=== PATIENT | male | born 1945 | race Caucasian/White ===

== ENCOUNTER 2020-06-19 12:38 | Observation (INO) | payer MEDICARE, OTHER, SELFPAY ==
[2020-06-19] VITALS (8 sets, daily range): BP systolic 90–116; BP diastolic 61–70; PULSE 75–100; RESP 16–24; TEMP 36.5–37.4; O2SAT 95–100; BMI 33.8; BMI 33.7; BMI 27.1
--- NOTE | 2020-06-19 13:01 | XR_ITS ---
PROCEDURE: XR CHEST PORTABLE Referring Doctor: Fred Malik Patient Age:75Y CLINICAL HISTORY: POSITIVE COVID, SOB cough the COMPARISON: No exams were available for comparison FINDINGS: AP portable upright chest.-2 upright chest images are submitted. The 2nd repeat CXR with better inspiration and positioning No prior studies for comparison LEFT LUNG: Suggestion of fairly diffuse subtle hazy infiltrate along the periphery of the left lung, most evident at left mid lung towards left base and towards left lung base. Also likely minimal slightly streaky infiltrate at the left perihilar region and left midlung and will likely towards the left infrahilar area at LLL. RIGHT LUNG. The slightly hyperlucent appearance mid and upper lung may reflect underlying COPD. There is some subtle this just above the right hemidiaphragm slightly linear appearance and could reflect atelectasis of only question of very small subtle patchy infiltrate here. . Heart is normal in size. Meron and mediastinal structures satisfactory Round density at midline projecting to the left at the lower chest likely reflects a hiatal hernia, small to moderate sized. Suggestion of subtle a a air-fluid level here further supporting hiatal hernia.-Upper normal wall thickness here difficult to fuels engineer on plain film and may merely reflect lack of distension. No definitive pleural effusion only question some scant fluid along the lateral aspect of left CP angle on 1 of the 2 images IMPRESSION: 1...Subtle patchy and hazy pneumonic infiltrate most evident and convincing at left Chest: . Subtle diffuse hazy peripheral infiltrate along the lateral aspect of the left lung . Also suspect very subtle infiltrates left perihilar, left mid lung, and left infrahilar region 2.. Subtle minimal linear density right lung base. Suspect mainly atelectasis, although difficult to totally exclude subtle tiny patchy area early infiltrate here 3.. Small/moderate hiatal hernia noted Dictated by: Brant Belle MD 06/19/2020 13:59 Brant Belle MD in [place] 06/19/2020 13:59
--- NOTE | 2020-06-19 13:26 | HMH.EDUTC ---
[facility] Disposition Clinical Impression: Pneumonia due to COVID-19 virus, Acute kidney insufficiency Disposition: Still a Patient Condition on Discharge: Good Referrals: Trace Salazar [Primary Care Provider] - Time of Disposition: 14:46 Medical Decision Making - Nick Inquiry Pt receiving controlled substance: No Vital Signs: 06/19/20 12:55 Temperature 97.7 F Temperature Source Oral Pulse Rate [Left Brachial] 100 H Respiratory Rate 24 Blood Pressure [Left Arm] 90/62 L Blood Pressure Mean [Left Arm] 71 Blood Pressure Source [Left Arm] Automatic Cuff Blood Pressure Position [Left Arm] Sitting 02 Sat by Pulse Oximetry 96 Oxygen Delivery Method Room Air - Lab Data Lab Results 06/19/20 11:50: WBC 6.7, RBC 4.82, Hgb 15.9, Hct 47.4, MCV 98.2 H, MCH 33.0 H, MCHC 33.6, RDW 12.7, Plt Count 227, MPV 7.6, Neut % (Auto) 80.8 H, Lymph % (Auto) 11.4, [place] % (Auto) 7.0, Eos % (Auto) 0.1, Baso % (Auto) 0.6, Neut # (Auto) 5.4, Lymph # (Auto) 0.8, [place] # (Auto) 0.5, Eos # (Auto) 0.0, Baso # (Auto) 0.0 06/19/20 11:50: Sodium 133 L, Potassium 4.4, Chloride 101, Carbon Dioxide 22, Anion Gap 14.4, BUN 27 H, Creatinine 2.10 H, Estimated Creat Clear 35, Estimated GFR 31 L, Est GFR ( Amer) 38 L, Glucose 123 H, Calcium 8.9, Total Bilirubin 1.2, AST 43, ALT 38, Alkaline Phosphatase 90, Total Protein 7.3, Albumin 4.2, Globulin 3.1, Albumin/Globulin Ratio 1.4 06/19/20 11:50: Lactate 1.2 06/19/20 11:50: Total Creatine Kinase 43 L, CK-MB (CK-2) 0.3, CK-MB (CK-2) Rel Index 0.7, Troponin I < 0.01 Result diagrams: 06/19/20 11:50 06/19/20 11:50 Orders (Tests/Meds): ED MEDICATIONS Generic Name Dose Route Start Last Admin Trade Name Freq PRN Reason Stop Dose Admin Sodium Chloride 1,000 mls @ 150 mls/hr 06/19/20 13:30 06/19/20 13:40 Sod Chlor 0.9% 1000ml Bag IV 07/19/20 13:29 150 mls/hr .[id number] MURTAZA Administration - Radiology Data #1 Image(s): Chest Image Reviewed: Yes I reviewed the patient's radiology image, Yes I have reviewed radiologist's interpretation covid pneumonia - Physician Consults Physician Consulted: er esau Time: 14:43 Reason -: Other Comment/Response: discussed labs, pt condition, pneumonia and possiable admission [facility] HPI - General Chief complaint: Urgent [facility] Stated complaint: covid +, cough Time Seen by Provider: 06/19/20 13:32 Mode of Arrival: Ambulatory Source of Information: Patient Limitations: No Limitations Description of Symptoms (Recalled from Triage Doc. by RN): PATIENT IS COVID POSITIVE. C/O COUGH AND SOA HEENT Symptoms (Recalled from RN notes): No Resp Symptoms (Recalled from RN notes): Yes Skin Symptoms (Recalled from RN notes): No MS Symptoms (Recalled from RN notes): No Functional Status (Recalled from RN notes): WNL - History of Present Illness Provider Complaint: 75 yr old male presents for coughing up clear sputum, soa, not eating or drinking well and tiredness - Related Data Home Medications Medication Instructions Recorded Confirmed Losartan Potassium [Cozaar 100mg 100 mg PO DAILY 06/19/20 06/19/20 Tablets] Omeprazole [Omeprazole 20mg 20 mg PO DAILY 06/19/20 06/19/20 Capsule] Tamsulosin HCl [Flomax 0.4mg 0.4 mg PO HS 06/19/20 06/19/20 capsule] Allergies Allergy/AdvReac Type Severity Reaction Status Date / Time diphenhydramine Allergy Verified 06/19/20 13:12 [From Joseline] - Worker's Comp Is this a Worker's Comp case?: No [facility] History - Hepatitis A Screen Drug use history?: No High risk sexual behaviors?: No History of sexually transmitted infection?: No Currently employed?: No Childcare worker?: No Do you have indoor plumbing?: Yes Do you have electricity?: Yes Attestation statement:: This patient has been screened for Hepatitis A risk factors. I have reviewed the patient's past medical history: Yes - Social History Alcohol Intake: never Occupational Status: other ROS
[2020-06-19 14:16] LABS: Basophils % 0.6 % (0.1-2.0); Eosinophils % 0.1 % (0.1-12.0); Hematocrit 47.4 % (42.0-52.0); Hemoglobin 15.9 g/dL (14.1-18.0); Lymphocytes # 0.8 K/mm3 (0.7-4.5); Lymphocytes % 11.4 % (10-50); Mean Corpuscular HGB Conc 33.6 g/dL (31.8-35.4); Mean Corpuscular Volume 98.2 fl (80-94); Mean Platelet Volume 7.6 fl (7.4-10.4); Monocytes # 0.5 K/mm3 (0.1-1.0); Neutrophils # 5.4 K/mm3 (1.8-7.8); Neutrophils % 80.8 % (37.0-80.0); Platelet Count 227 K/mm3 (142-424); Red Blood Count 4.82 M/mm3 (4.60-6.20); Red Cell Distribution Width 12.7 % (11.5-17.5); White Blood Count 6.7 K/mm3 (4.8-10.8)
[2020-06-19 14:23] LABS: Alanine Aminotransferase 38 U/L (12-78); Albumin Level 4.2 g/dl (3.5-5.0); Albumin/Globulin Ratio 1.4 (1.1-1.8); Alkaline Phosphatase 90 U/L (38-126); Anion Gap 14.4 mEq/L (5-15); Aspartate Amino Transferase 43 U/L (17-59); Bilirubin,Total 1.2 mg/dl (0.2-1.3); Blood Urea Nitrogen 27 mg/dl (9-20); Calcium 8.9 mg/dl (8.4-10.2); Carbon Dioxide 22 mmol/L (22.0-30.0); Chloride 101 mmol/L (98-107); Creatine Kinase 43 U/L (55-170); Creatinine Clearance Estimated 35 mL/min (50-200); Estimated Glomerular Filt Rate 31 ml/min (>60); GFR (African American) 38 ML/MIN (>60); Globulin 3.1 g/dL (1.3-3.2); Glucose 123 mg/dl (74-100); Potassium 4.4 mmoL/L (3.5-5.1); Sodium 133 mmol/L (136-145); Total Protein,Serum 7.3 g/dl (6.3-8.2)
[2020-06-19 14:36] LABS: CKMB Relative Index 0.7 U/L (0-4.0); Creatine Kinase MB 0.3 ng/ml (0.0-2.03); Lactic Acid 1.2 mmol/L (0.7-2.1); Troponin I < 0.01 ng/ml (0.00-0.034)
--- NOTE | 2020-06-19 14:45 | PC.NURSE ---
PATIENT SENT TO ER PER DENA SOLIS APRN FOR ADMISSION. REPORT GIVEN TO Iliana MONTES DE OCA RN
--- NOTE | 2020-06-19 15:50 | HMH.EDGENADL ---
ED Disposition Clinical Impression: Pneumonia due to COVID-19 virus, Acute kidney insufficiency Disposition: Admitted As Inpatient Condition on Discharge: Good Referrals: Trace Salazar [Primary Care Provider] - - Critical Care Critical Care Time: No Attestation: On 06/19/20, the high probability of a clinically significant, sudden or life threatening deterioration of the following system(s) required my full and direct attention, intervention and personal management. The time I documented below is in addition to time spent performing reported procedures but includes the following listed in this critical care notation. Medical Decision Making - Medical Records Medical records reviewed: Yes: I reviewed the patient's medical records. - Nick Inquiry Pt receiving controlled substance: No Vital Signs: 06/19/20 12:55 06/19/20 14:45 06/19/20 15:10 Temperature 97.7 F 99.3 F Temperature Source Oral Oral Pulse Rate [Left Brachial] 100 H 92 H 82 Respiratory Rate 24 22 18 Blood Pressure [Left Arm] 90/62 L 92/61 L 108/63 L Blood Pressure Mean [Left Arm] 71 71 78 Blood Pressure Source [Left Arm] Automatic Cuff Automatic Cuff Automatic Cuff Blood Pressure Position [Left Arm] Sitting Sitting Sitting 02 Sat by Pulse Oximetry 96 100 96 Oxygen Delivery Method Room Air Room Air Room Air 06/19/20 16:07 06/19/20 16:30 Temperature Temperature Source Pulse Rate [Left Brachial] 79 82 Respiratory Rate Blood Pressure [Left Arm] 113/68 106/65 L Blood Pressure Mean [Left Arm] 83 78 Blood Pressure Source [Left Arm] Automatic Cuff Automatic Cuff Blood Pressure Position [Left Arm] Sitting Sitting 02 Sat by Pulse Oximetry 96 97 Oxygen Delivery Method Room Air Room Air - Lab Data Lab Results 06/19/20 11:50: WBC 6.7, RBC 4.82, Hgb 15.9, Hct 47.4, MCV 98.2 H, MCH 33.0 H, MCHC 33.6, RDW 12.7, Plt Count 227, MPV 7.6, Neut % (Auto) 80.8 H, Lymph % (Auto) 11.4, [place] % (Auto) 7.0, Eos % (Auto) 0.1, Baso % (Auto) 0.6, Neut # (Auto) 5.4, Lymph # (Auto) 0.8, [place] # (Auto) 0.5, Eos # (Auto) 0.0, Baso # (Auto) 0.0 06/19/20 11:50: Sodium 133 L, Potassium 4.4, Chloride 101, Carbon Dioxide 22, Anion Gap 14.4, BUN 27 H, Creatinine 2.10 H, Estimated Creat Clear 35, Estimated GFR 31 L, Est GFR ( Amer) 38 L, Glucose 123 H, Calcium 8.9, Total Bilirubin 1.2, AST 43, ALT 38, Alkaline Phosphatase 90, Total Protein 7.3, Albumin 4.2, Globulin 3.1, Albumin/Globulin Ratio 1.4 06/19/20 11:50: Lactate 1.2 06/19/20 11:50: Total Creatine Kinase 43 L, CK-MB (CK-2) 0.3, CK-MB (CK-2) Rel Index 0.7, Troponin I < 0.01 Result diagrams: 06/19/20 11:50 06/19/20 11:50 Orders (Tests/Meds): ED MEDICATIONS Generic Name Dose Route Start Last Admin Trade Name Freq PRN Reason Stop Dose Admin Sodium Chloride 1,000 mls @ 150 mls/hr 06/19/20 13:30 06/19/20 13:40 Sod Chlor 0.9% 1000ml Bag IV 07/19/20 13:29 150 mls/hr .[id number] MURTAZA Administration ORDERS Category Date Time Status Covid-19 Nasal PCR ([facility]) Routine Lab 06/19/20 15:10 Received Medical Decision Narrative: Patient 75-year-old male presenting with recent Covid infection presenting with decreased p.o. intake and generalized weakness. On initial work-up, patient with a creatinine of 2.1 and he had a blood pressure of 90/62 mmHg. He does have hypertension so this is abnormal for him. He was given a 1 L fluid bolus and his blood pressure now is 106/65 mmHg which is mildly improved but still on the low side of normal. X-ray does demonstrate what appears to be Covid pneumonia but patient has had no desaturations on room air or increased work of breathing. At this time, dexamethasone given and I did reach out to on-call hospitalist to discuss admission for this patient. After careful discussion patient will be admitted to Dr. Ray's service. I shared this plan with patient and in lobby and all parties are in agreement. Assessment: Covid infection Low blood pressure Ac
--- NOTE | 2020-06-19 16:29 | PC.NURSE ---
Dr Bartlett speaking to Dr Diaz.
--- NOTE | 2020-06-19 17:02 | PC.NURSE ---
Per radiologist recommendations, CTA is cancelled due to pt creatinine. MD aware.
--- NOTE | 2020-06-19 18:11 | PC.NURSE ---
notified ER of positive covid swab
--- NOTE | 2020-06-19 18:33 | PC.NURSE ---
tried to call report to second floor, staff didn't know who was the primary receiving nurse on pt, charge states she will call me back with assignment
--- NOTE | 2020-06-19 18:40 | PC.NURSE ---
spoke with jordan baron states she will be down to get report on pt.
--- NOTE | 2020-06-19 18:58 | PC.NURSE ---
report given to lorainern
--- NOTE | 2020-06-19 18:59 | PC.NURSE ---
asked ER MD if pt needs antibiotics r/t pt admitting diagnosis of covid pneumonia, ER MD states no antibiotics at this time r/t atypical viral pneumonia.
--- NOTE | 2020-06-19 19:30 | PC.NURSE ---
PT ARRIVED TO FLOOR VIA W/C FROM ED W/STAFF AT 1928
--- NOTE | 2020-06-19 20:38 | HMH.HP ---
*Admission Date: 06/19/20 *Chief complaint: soa *History of present illness: 75 yr old male presented to [facility] with c/o of soa, fatigue, decrease eating and drinking, coughing, and body aches for 4 days. Pt stats he was dx with covid and he continues to decline. Pt on arrival to [facility] had bp of 90/50 with hr 100. pt states his normal bp is 130/90. pt states he becomes very soa with walking. Pt was found to have cre 2.1 and pneumonia on xray. Then pt was sent to ed for evaluation. Pt admitted due to hypotension, and pneumonia. Pt wants to stay in hospital stats he is to ill to go home and wants to get better. [facility] History I have reviewed the patient's past medical history: Yes *Have you ever received a pneumonia vaccine?: No *Have you received a flu vaccine this season?: No - *Social History Alcohol Intake: never *Occupational Status:: other *Travel in the last 8 weeks: None Family Hx:: No significant family history Review of Systems - Review of Systems Review of systems:: pertinent systems reviewed and negative unless documented below - Constitutional Reports body ache(s), Reports fatigue, Reports fever(s), Reports malaise - Eyes Denies blurry vision - ENT Reports nasal congestion, Denies bleeding gums - *Cardiovascular Reports shortness of breath, Reports shortness of breath with activity, Denies chest pain with activity - *Respiratory Reports chest congestion, Reports cough, Reports shortness of breath, Reports shortness of breath with activity - *Gastrointestinal Reports nausea, Denies vomiting - *Genitourinary Denies urinary frequency - *Musculoskeletal Denies joint pain - Integumentary/Breasts Denies rash - *Neurologic Denies dizziness, Denies loss of vision - Psychiatric Denies anxiety - Endocrine Denies excessive sweating - Hematologic/Lymphatic Denies easy bruising - Allergic/Immunologic Denies itchy eyes Meds Home Medications Medication Instructions Recorded Confirmed Type Losartan Potassium [Cozaar 100mg 100 mg PO DAILY 06/19/20 06/19/20 History Tablets] Omeprazole [Omeprazole 20mg 20 mg PO DAILY 06/19/20 06/19/20 History Capsule] Tamsulosin HCl [Flomax 0.4mg 0.4 mg PO HS 06/19/20 06/19/20 History capsule] Allergies Allergy/AdvReac Type Severity Reaction Status Date / Time diphenhydramine Allergy Verified 06/19/20 13:12 [From Benadryl] Exam Vital signs and Labs for Last 24 Hours: Temp Pulse Resp BP Pulse Ox 97.9 F 75 16 116/66 95 06/19/20 20:00 06/19/20 20:00 06/19/20 20:00 06/19/20 20:00 06/19/20 20:00 Laboratory Results - last 24 hr 06/19/20 11:50: WBC 6.7, RBC 4.82, Hgb 15.9, Hct 47.4, MCV 98.2 H, MCH 33.0 H, MCHC 33.6, RDW 12.7, Plt Count 227, MPV 7.6, Neut % (Auto) 80.8 H, Lymph % (Auto) 11.4, [place] % (Auto) 7.0, Eos % (Auto) 0.1, Baso % (Auto) 0.6, Neut # (Auto) 5.4, Lymph # (Auto) 0.8, [place] # (Auto) 0.5, Eos # (Auto) 0.0, Baso # (Auto) 0.0 06/19/20 11:50: Sodium 133 L, Potassium 4.4, Chloride 101, Carbon Dioxide 22, Anion Gap 14.4, BUN 27 H, Creatinine 2.10 H, Estimated Creat Clear 35, Estimated GFR 31 L, Est GFR ( Amer) 38 L, Glucose 123 H, Calcium 8.9, Total Bilirubin 1.2, AST 43, ALT 38, Alkaline Phosphatase 90, Total Protein 7.3, Albumin 4.2, Globulin 3.1, Albumin/Globulin Ratio 1.4 06/19/20 11:50: Lactate 1.2 06/19/20 11:50: Total Creatine Kinase 43 L, CK-MB (CK-2) 0.3, CK-MB (CK-2) Rel Index 0.7, Troponin I < 0.01 I & O for Last 24 hours: Intake & Output 06/17/20 06/18/20 06/19/20 06/20/20 11:59 11:59 11:59 11:59 Weight 168 lb Microbiology Reports for the Last 24 Hours: Microbiology 06/19/20 15:10 Nasopharyngeal Coronavirus COVID-19 PCR - Final - Constitutional no acute distress - *Routine HEENT Exam Head: Present: normocephalic Eye: Present: PERRL ENT: Present: mucous membranes moist - *Routine Neck Exam Present: supple. Absent: lymphadenopathy - *Routine Respir
[2020-06-20] VITALS: BP 92/55; PULSE 77; RESP 16; TEMP 36.7; O2SAT 99
[2020-06-20 04:00] VITALS: BP 106/58; PULSE 66; RESP 16; TEMP 36.4; O2SAT 94
--- NOTE | 2020-06-20 05:10 | PC.NURSE ---
Pt. tolerating RA well with o2 sat 96-99%. Pt. has not c/o n/v/d, dizziness, soa or pain this shift.
[2020-06-20 06:00] VITALS: BMI 27.0
--- NOTE | 2020-06-20 06:00 | XR_ITS ---
PROCEDURE: XR CHEST PORTABLE CLINICAL HISTORY: covid 19 Follow-up Covid19 COMPARISON: CR XR CHEST PORTABLE from 06/19/2020 FINDINGS: The cardiomediastinal silhouette and pulmonary vascularity are within normal limits. Bilateral areas of infiltrate have improved. There remains some patchy infiltrate in the left lower lobe. No evidence of pneumothorax or other anomaly. No acute bony abnormalities. IMPRESSION: Improving bilateral pneumonia with some residual pneumonia in the left lower lobe Dictated by: Jovan Vilchis MD 06/20/2020 06:41 Jovan Vilchsi MD in [place] 06/20/2020 06:41
[2020-06-20 06:16] LABS: Basophils % 0.2 % (0.1-2.0); Eosinophils % 0.1 % (0.1-12.0); Hematocrit 43.9 % (42.0-52.0); Lymphocytes # 0.5 K/mm3 (0.7-4.5); Lymphocytes % 10.4 % (10-50); Mean Corpuscular HGB Conc 32.2 g/dL (31.8-35.4); Mean Corpuscular Hemoglobin 31.7 pg (27.0-31.2); Mean Corpuscular Volume 98.5 fl (80-94); Mean Platelet Volume 7.2 fl (7.4-10.4); Monocytes # 0.3 K/mm3 (0.1-1.0); Monocytes % 6.7 % (1.7-9.3); Neutrophils # 3.9 K/mm3 (1.8-7.8); Neutrophils % 82.6 % (37.0-80.0); Platelet Count 205 K/mm3 (142-424); Red Blood Count 4.46 M/mm3 (4.60-6.20); Red Cell Distribution Width 11.9 % (11.5-17.5); White Blood Count 4.8 K/mm3 (4.8-10.8)
[2020-06-20 06:18] LABS: Hemoglobin 14.1 g/dL (14.1-18.0)
[2020-06-20 06:21] LABS: Chloride 110 mmol/L (98-107); Potassium 4.7 mmoL/L (3.5-5.1); Sodium 138 mmol/L (136-145)
[2020-06-20 06:24] LABS: Alanine Aminotransferase 50 U/L (12-78); Albumin Level 3.7 g/dl (3.5-5.0); Albumin/Globulin Ratio 1.3 (1.1-1.8); Alkaline Phosphatase 83 U/L (38-126); Anion Gap 10.7 mEq/L (5-15); Aspartate Amino Transferase 41 U/L (17-59); Bilirubin,Total 0.8 mg/dl (0.2-1.3); Blood Urea Nitrogen 23 mg/dl (9-20); Calcium 8.8 mg/dl (8.4-10.2); Carbon Dioxide 22 mmol/L (22.0-30.0); Creatinine Clearance Estimated 50 mL/min (50-200); Estimated Glomerular Filt Rate 50 ml/min (>60); GFR (African American) 60 ML/MIN (>60); Globulin 2.8 g/dL (1.3-3.2); Glucose 177 mg/dl (74-100); Total Protein,Serum 6.5 g/dl (6.3-8.2)
--- NOTE | 2020-06-20 07:04 | CT_ITS ---
PROCEDURE: CT ANGIO CHEST CLINCIAL INDICATION: R/O PE Covid19 positive, shortness of breath, pneumonia COMPARISON: CR XR CHEST PORTABLE from 06/20/2020 TECHNIQUE: IV Contrast: 70ML Isovue 370 Axial images obtained with sagittal and coronal reformats. All CT scans at the facility use one or more dose reduction, viz: automated exposure control, ma/kV adjustment per patient size (including targeted exams where dose is matched to indication, i.e. head), or iterative reconstruction technique. FINDINGS: HEART AND MEDIASTINAL STRUCTURES: No evidence of pulmonary embolus, aortic aneurysm, or aortic dissection. LUNGS AND PLEURAL SPACES: There are multifocal areas of ground-glass infiltrate in both upper and lower lobes. This is more extensive on the left than the right and is present in both upper and lower lobes. There is a 7 mm noncalcified nodule in the right lower lobe image 65 series 3. Scattered atelectatic changes are also present. There are 2 small nodular opacities in the right middle lobe at 3 mm each. The there is evidence of old granulomatous disease. BONY STRUCTURES: Degenerative changes lower thoracic spine. UPPER ABDOMEN: There is a small hiatal hernia. ADDITIONAL FINDINGS: No other significant abnormalities. IMPRESSION: 1. No evidence of pulmonary embolus, aortic aneurysm, or aortic dissection. 2. Commonly reported imaging features of Covid19 pneumonia are present with bilateral multi focal areas of ground-glass infiltrate and atelectatic change.. Other processes such is influenza pneumonia and organizing pneumonia, drug toxicity, connective tissue disease, and pulmonary hemorrhage can cause a similar imaging pattern. Dictated by: Jovan Vilchis MD 06/20/2020 08:51 Jovan Vilchis MD in [place] 06/20/2020 08:51
--- NOTE | 2020-06-20 07:28 | P.CONPHA_ITS ---
[facility] Pharmacy VTE Monitoring - Patient Demographics Admission date: 06/19/20 Report Date: 06/20/20 Time: 07:28 Allergies/Adverse Reactions: Patient Allergies diphenhydramine [From Benadryl] Allergy (Verified 06/19/20 13:12) Height: 1.68 m Weight: 76.204 kg Patient Problems: Current Active Problems Pneumonia due to COVID-19 virus (Acute) Acute kidney insufficiency (Acute) - VTE Risk Labs: VTE Related Lab Results Hgb 14.1 g/dL (14.1-18.0) D 06/20/20 06:00 Hct 43.9 % (42.0-52.0) 06/20/20 06:00 Plt Count 205 K/mm3 (142-424) 06/20/20 06:00 BUN 23 mg/dl (9-20) H 06/20/20 06:00 Creatinine 1.40 mg/dl (0.66-1.25) H D 06/20/20 06:00 Estimated Creat Clear 50 mL/min (50-200) 06/20/20 06:00 Was VTE Risk Assessment Performed: Yes VTE Score: 1 VTE Risk Level: Very Low Risk - Prophylaxis VTE Prophylaxis Ordered?: Yes Types of VTE Prophylaxis: TEDS Knee High, Pharmacological Location of Applied Device: Bilateral Lower Extremeties Pharmacologic Type: Enoxaparin
[2020-06-20 12:00] VITALS: BP 121/76; PULSE 93; RESP 18; TEMP 37.1; O2SAT 94
--- NOTE | 2020-06-20 12:08 | HMH.PULMCON ---
*Admission Date: 06/19/20 *Reason for consult:: COVID-19 pneumonia *History of present illness: Mr. Varghese is 75-year-old male around 2-pack-year smoking is when he was 21 years old, and smoked since then recent diagnosis of COVID-19 pneumonia 5 days prior to presentation noted to have worsening respiratory symptoms and was presented to the department for further evaluation treatment patient was found to be needing oxygen supplementation to maintain his disease saturations and was eventually admitted to the isolation unit and pulmonary was called for further management. [facility] History Medical History: Reports:: Hypertension Denies:: Cancer, Diabetes Mellitus Type 1, Diabetes Mellitus Type 2, MRSA *Have you ever received a pneumonia vaccine?: No *Have you received a flu vaccine this season?: Yes Amputation: No Fractures: No - *Social History Alcohol Intake: never *Occupational Status:: retired Household Members: spouse, family *Travel in the last 8 weeks: None Family Hx:: Hypertension ROS - Cons Reports anorexia, Reports body ache(s) - Card Reports shortness of breath with activity - Resp Respiratory: Reports chest congestion, Reports cough, Reports dyspnea on exertion, Reports excessive phlegm production Meds Home Medications Medication Instructions Recorded Confirmed Type Aspirin [Aspirin 81mg chewable 81 mg PO DAILY 06/19/20 06/19/20 History tab] Losartan Potassium [Cozaar 100mg 100 mg PO DAILY 06/19/20 06/19/20 History Tablets] Omeprazole [Omeprazole 20mg 20 mg PO DAILY 06/19/20 06/19/20 History Capsule] Tamsulosin HCl [Flomax 0.4mg 0.4 mg PO HS 06/19/20 06/19/20 History capsule] Benzonatate [Benzonatate 100mg 100 mg PO Q4HP PRN 06/20/20 06/20/20 History cap] Allergies Allergy/AdvReac Type Severity Reaction Status Date / Time diphenhydramine Allergy Verified 06/19/20 13:12 [From Joseline] Exam - Constitutional Constitutional:: Present: no acute distress, comfortable - HENMT Exam HENMT: Present: normocephalic, atraumatic - Neck Exam Neck:: Present: thyroid normal - Respiratory Exam Respiratory:: Present: able to speak in complete sentences, no respiratory distress, normal respiratory effort, crackles - Cardiovascular Exam Cardiac:: Present: S1, S2 - GI Exam GI:: Present: soft, no hepatosplenomegaly - Skin Exam Skin: Present: warm, no rash - Neurological Exam Neurological: Present: alert, awake, normal cognition - Extremities Exam Extremities: Present: no cyanosis, no clubbing, no edema Internal Medicine - CN: Reslt - Labs CBC & Chem 7: 06/20/20 06:00 06/20/20 06:00 Labs: Short CBC 06/19/20 06/20/20 Range/Units 11:50 06:00 WBC 6.7 4.8 D (4.8-10.8) K/mm3 Hgb 15.9 14.1 D (14.1-18.0) g/dL Hct 47.4 43.9 (42.0-52.0) % Plt Count 227 205 (142-424) K/mm3 BMP 06/19/20 06/20/20 11:50 06:00 Sodium 133 L 138 Potassium 4.4 4.7 Chloride 101 110 H Carbon Dioxide 22 22 BUN 27 H 23 H Creatinine 2.10 H 1.40 H D Glucose 123 H 177 H D Calcium 8.9 8.8 Cardiac Enzymes 06/19/20 Range/Units 11:50 Total Creatine Kinase 43 L (55-170) U/L CK-MB (CK-2) 0.3 (0.0-2.03) ng/ml Troponin I < 0.01 (0.00-0.034) ng/ml Liver Function 06/19/20 06/20/20 Range/Units 11:50 06:00 Total Bilirubin 1.2 0.8 (0.2-1.3) mg/dl AST 43 41 (17-59) U/L ALT 38 50 D (12-78) U/L Alkaline Phosphatase 90 83 (38-126) U/L Albumin 4.2 3.7 D (3.5-5.0) g/dl Assessment and Plan (1) Acute kidney insufficiency Status: Acute Category: Medical Code(s): N28.9 - Disorder of kidney and ureter, unspecified (2) Pneumonia due to COVID-19 virus Status: Acute Category: Medical Code(s): U07.1 - COVID-19; J12.82 - Pneumonia due to coronavirus disease 2019 - Assessment and plan all Dx Assessment and Plan for all problems:: #COVID-19 pneumonia: 75-year-old only 2-pack-year
--- NOTE | 2020-06-20 12:44 | [facility].DCSUM ---
General - General Admission date:: 06/19/20 Discharge date: 06/20/20 HPI HPI: 75 yr old male presented to [facility] with c/o of soa, fatigue, decrease eating and drinking, coughing, and body aches for 4 days. Pt stats he was dx with covid and he continues to decline. Pt on arrival to [facility] had bp of 90/50 with hr 100. pt states his normal bp is 130/90. pt states he becomes very soa with walking. Pt was found to have cre 2.1 and pneumonia on xray. Then pt was sent to ed for evaluation. Pt admitted due to hypotension, and pneumonia. Pt wants to stay in hospital stats he is to ill to go home and wants to get better. Hospital Course Hospital Course: Laboratory Tests 06/19/20 06/19/20 06/19/20 11:50 11:50 11:50 WBC 6.7 RBC 4.82 Hgb 15.9 Hct 47.4 MCV 98.2 H MCH 33.0 H MCHC 33.6 RDW 12.7 Plt Count 227 MPV 7.6 Neut % (Auto) 80.8 H Lymph % (Auto) 11.4 [place] % (Auto) 7.0 Eos % (Auto) 0.1 Baso % (Auto) 0.6 Neut # (Auto) 5.4 Lymph # (Auto) 0.8 [place] # (Auto) 0.5 Eos # (Auto) 0.0 Baso # (Auto) 0.0 Sodium 133 L Potassium 4.4 Chloride 101 Carbon Dioxide 22 Anion Gap 14.4 BUN 27 H Creatinine 2.10 H Estimated Creat Clear 35 Estimated GFR 31 L Est GFR ( Amer) 38 L Glucose 123 H Lactate 1.2 Calcium 8.9 Total Bilirubin 1.2 AST 43 ALT 38 Alkaline Phosphatase 90 Total Creatine Kinase CK-MB (CK-2) CK-MB (CK-2) Rel Index Troponin I Total Protein 7.3 Albumin 4.2 Globulin 3.1 Albumin/Globulin Ratio 1.4 06/19/20 06/20/20 06/20/20 11:50 06:00 06:00 WBC 4.8 D RBC 4.46 L Hgb 14.1 D Hct 43.9 MCV 98.5 H MCH 31.7 H MCHC 32.2 RDW 11.9 Plt Count 205 MPV 7.2 L Neut % (Auto) 82.6 H Lymph % (Auto) 10.4 [place] % (Auto) 6.7 Eos % (Auto) 0.1 Baso % (Auto) 0.2 Neut # (Auto) 3.9 Lymph # (Auto) 0.5 L [place] # (Auto) 0.3 Eos # (Auto) 0.0 Baso # (Auto) 0.0 Sodium 138 Potassium 4.7 Chloride 110 H Carbon Dioxide 22 Anion Gap 10.7 BUN 23 H Creatinine 1.40 H D Estimated Creat Clear 50 Estimated GFR 50 L Est GFR ( Amer) 60 D Glucose 177 H D Lactate Calcium 8.8 Total Bilirubin 0.8 AST 41 ALT 50 D Alkaline Phosphatase 83 Total Creatine Kinase 43 L CK-MB (CK-2) 0.3 CK-MB (CK-2) Rel Index 0.7 Troponin I < 0.01 Total Protein 6.5 Albumin 3.7 D Globulin 2.8 Albumin/Globulin Ratio 1.3 Microbiology 06/19/20 15:10 Nasopharyngeal Coronavirus COVID-19 PCR - Final chest xray06/19/20: IMPRESSION: 1...Subtle patchy and hazy pneumonic infiltrate most evident and convincing at left Chest: . Subtle diffuse hazy peripheral infiltrate along the lateral aspect of the left lung . Also suspect very subtle infiltrates left perihilar, left mid lung, and left infrahilar region 2.. Subtle minimal linear density right lung base. Suspect mainly atelectasis, although difficult to totally exclude subtle tiny patchy area early infiltrate here 3.. Small/moderate hiatal hernia noted 06/20/20 chest x ray: FINDINGS: The cardiomediastinal silhouette and pulmonary vascularity are within normal limits. Bilateral areas of infiltrate have improved. There remains some patchy infiltrate in the left lower lobe. No evidence of pneumothorax or other anomaly. No acute bony abnormalities. IMPRESSION: Improving bilateral pneumonia with some residual pneumonia in the left lower lobe CTA: FINDINGS: HEART AND MEDIASTINAL STRUCTURES: No evidence of pulmonary embolus, aortic aneurysm, or aortic dissection. LUNGS AND PLEURAL SPACES: There are multifocal areas of ground-glass infiltrate in both upper and lower lobes. This is more extensive on the left than the right and is present in both upper and lower lobes. There is a 7 mm noncalc
== END 2020-06-20 14:45 | disposition home or self-care (01) ==
LOC: UTC 14:46 → ER 14:51 → 2ND 18:02
PROVIDERS: Nurse Practitioner Family; Admitting Provider Emergency Medicine; Emergency Provider Emergency Medicine; PCP Nurse Practitioner Family; Visit Provider Emergency Medicine
DX: U07.1 COVID-19 (principal); J12.82 Pneumonia due to coronavirus disease 2019; N17.9 Acute kidney failure, unspecified; I10 Essential (primary) hypertension; Z79.82 Long term (current) use of aspirin; Z79.899 Other long term (current) drug therapy
CPT/HCPCS: 36415; 71045; 71275; 80053; 82550; 82553; 83605; 84484; 85025; 96365; 99284; G0378; Q9967; U0003

== ENCOUNTER → 2020-06-21 07:47 | Outpatient (CLI) | payer MEDICARE, OTHER, SELFPAY ==
[2020-06-21] VITALS (7 sets, daily range): BP systolic 104–117; BP diastolic 63–69; PULSE 80–86; RESP 12–18; TEMP 36.6–36.9; O2SAT 95–97
== END ==
PROVIDERS: PCP Emergency Medicine; Visit Provider Emergency Medicine
DX: U07.1 COVID-19 (principal)
CPT/HCPCS: 96365